=== PATIENT | male | born 1980 | race Hispanic/Latino ===

== ENCOUNTER 2020-09-13 11:46 | Emergency (ER) | payer SELFPAY ==
--- NOTE | 2020-09-13 12:50 | RAD REPORT ---
EXAM DESCRIPTION: CT - Head Brain Wo Cont - 09/13/2020 12:42 pm CLINICAL HISTORY: VISUAL DISTURBANCES Headache, drowsiness, blurry vision COMPARISON: No comparisons TECHNIQUE: All CT scans are performed using dose optimization technique as appropriate and may inclu de automated exposure control or mA/KV adjustment according to patient size. FINDINGS: No intracranial hemorrhage, hydrocephalus or extra-axial fluid collection.No areas of brai n edema or evidence of midline shift. The paranasal sinuses and mastoids are clear. The calvarium is intact. IMPRESSION: No acute intracranial abnormality.
--- NOTE | 2020-09-13 13:16 | ER ---
Nurse's Notes [facility] Name: Yong Hammond Age: 39 yrs Sex: Male : 1980 Arrival Date: 09/13/2020 Time: 11:49 Bed 27 Private MD: Diagnosis: Encounter for examination of eyes and vision with abnormal findings-left eye Presentation: 09/13 12:23 Chief complaint: Patient states: vision in left eye started getting blurry and has some iw darkening of his vision, started about a week, then yesterday he was driving and he couldn't see the reflection on the street signs at night. Coronavirus screen: At this time, the client does not indicate any symptoms associated with coronavirus-19. Ebola Screen: Patient negative for fever greater than or equal to 101.5 degrees Fahrenheit, and additional compatible Ebola Virus Disease symptoms Patient denies exposure to infectious person. Patient denies travel to an Ebola-affected area in the 21 days before illness onset. No symptoms or risks identified at this time. Initial Sepsis Screen: Does the patient meet any 2 criteria? No. Patient's initial sepsis screen is negative. Does the patient have a suspected source of infection? No. Patient's initial sepsis screen is negative. Risk Assessment: Do you want to hurt yourself or someone else?. Onset of symptoms was September 06, 2020. 12:23 Method Of Arrival: Ambulatory iw 12:23 Acuity: MUNA 3 iw Historical: - Allergies: 12:25 No Known Allergies; iw - Home Meds: 12:25 None [Active]; iw - PMHx: 12:25 abdominal hernia; iw - PSHx: 12:25 Cholecystectomy; iw - Immunization history:: Adult Immunizations. - Social history:: Smoking status: Patient reports the use of cigarette tobacco products, smokes one-half pack cigarettes per day. Screenin:00 Abuse screen: Denies threats or abuse. Denies injuries from another. Nutritional jl7 screening: No deficits noted. Tuberculosis screening: No symptoms or risk factors identified. Fall Risk None identified. Assessment: 12:50 General: Appears in no apparent distress. uncomfortable, Behavior is calm, cooperative, jl7 appropriate for age. Pain: Denies pain. Neuro: Level of Consciousness is awake, alert, obeys commands, Oriented to person, place, time, situation, Reports "It's not really blurry, it just looks different.". Cardiovascular: Patient's skin is warm and dry. Respiratory: Airway is patent Respiratory effort is even, unlabored, Respiratory pattern is regular, symmetrical. Derm: Skin is pink, warm \\T\\ dry. Vital Signs: 12:23 BP 120 / 77; Pulse 70; Resp 16; Temp 97.3; Pulse Ox 99% on R/A; Weight 81.65 kg; Height iw 5 ft. 1 in. (154.94 cm); Pain 0/10; 13:01 BP 119 / 63; Pulse 69; Resp 17; Pulse Ox 96% ; jl7 12:23 Body Mass Index 34.01 (81.65 kg, 154.94 cm) iw Visual Acuity: 13:00 Left Eye Visual acuity 20/15, ; Right Eye Visual acuity 20/15, ; Both Eyes Visual jl7 acuity 20/15; Without Lenses; ED Course: 11:49 Patient arrived in ED. rg4 12:25 Triage completed. iw 12:25 Arm band placed on. iw 12:39 Earl Moya PA is PHCP. cp 12:39 Wilmer Otoole MD is Attending Physician. cp 12:40 Bry Newton RN is Primary Nurse. jl7 12:41 CT Head Brain wo Cont In Process Unspecified. EDMS 13:00 Patient has correct armband on for positive identification. Bed in low position. Call jl7 light in reach. Side rails up X 1. Pulse ox on. NIBP on. 13:15 Nicci Reece MD is Referral Physician. cp 13:23 No provider procedures requiring assistance completed. Patient did not have IV access jl7 during this emergency room visit. Administered Medications: No medications were administered Point of Care Testing: Blood Glucose: 12:51 Blood Glucose: 107 mg/dL; jl7 Ranges: Outcome: 13:15 Discharge ordered by . cp 13:23 Discharged to home ambulatory. jl7 13:23 Condition: stable 13:23 Discharge instructions given to patient, Instructed on discharge instructions, follow up and referral plans. Demonstrated understanding of instructions. 13:24 Patient left the ED. jl7 Signatures: Dispatcher [employer] EDMO Ghislaine Seymour RN RN Earl Moya PA PA Yaneli Bar rg4 Bry Newton RN RN jl7
--- NOTE | 2020-09-13 13:17 | EDPHYS ---
Physician Documentation [facility] Name: Yong Hammond Age: 39 yrs Sex: Male : 1980 Arrival Date: 09/13/2020 Time: 11:49 Bed 27 Private MD: ED Physician Wilmer Otoole HPI: 09/13 13:00 This 39 yrs old Male presents to ER via Ambulatory with complaints of Blurred cp Vision. 13:00 The patient is experiencing left eye vision changes. cp 13:00 Onset: The symptoms/episode began/occurred 1 week(s) ago. cp 13:00 Duration: the symptoms are continuous. cp 13:00 Patient does not utilize any form of vision correction. cp 13:00 Patient c/o left eye vision changes times 1 weeks. Concerned that coloration appears cp "darkened, grainy" when looking with left eye. Denies floaters. Historical: - Allergies: 12:25 No Known Allergies; iw - Home Meds: 12:25 None [Active]; iw - PMHx: 12:25 abdominal hernia; iw - PSHx: 12:25 Cholecystectomy; iw - Immunization history:: Adult Immunizations. - Social history:: Smoking status: Patient reports the use of cigarette tobacco products, smokes one-half pack cigarettes per day. ROS: 13:05 Eyes: Positive for visual disturbance, of the left eye, Negative for blurry vision, cp discharge, pain, redness, vision loss. 13:05 ENT: Negative for injury, pain, and discharge. cp 13:05 Constitutional: Negative for body aches, chills, fever. 13:05 Cardiovascular: Negative for chest pain. 13:05 Respiratory: Negative for cough, shortness of breath, wheezing. 13:05 Skin: Negative for rash. 13:05 Neuro: Negative for altered mental status, dizziness, headache, weakness. 13:05 All other systems are negative. Exam: 13:07 Visual Acuity: I have reviewed the nursing documentation. cp 13:07 Head/Face: Normocephalic, atraumatic. cp 13:07 Constitutional: The patient appears in no acute distress, alert, awake, non-toxic, well developed, well nourished. 13:07 Eyes: Periorbital structures: appear normal, Pupils: equal, round, and reactive to cp light and accomodation, Extraocular movements: intact throughout, Conjunctiva: normal, no exudate, no injection, Corneas: are normal, no foreign body, Sclera: no appreciated abnormality, Anterior chamber: normal, no hyphema, Lids and lashes: appear normal, bilaterally. 13:07 ENT: External ear(s): are unremarkable, Nose: is normal, Posterior pharynx: Airway: no evidence of obstruction, patent. 13:07 Neck: Lymph nodes: no appreciated lymphadenopathy. 13:07 Chest/axilla: Inspection: normal. 13:07 Cardiovascular: Rate: normal. 13:07 Skin: no rash present. Vital Signs: 12:23 BP 120 / 77; Pulse 70; Resp 16; Temp 97.3; Pulse Ox 99% on R/A; Weight 81.65 kg; Height iw 5 ft. 1 in. (154.94 cm); Pain 0/10; 13:01 BP 119 / 63; Pulse 69; Resp 17; Pulse Ox 96% ; jl7 12:23 Body Mass Index 34.01 (81.65 kg, 154.94 cm) iw Visual Acuity: 13:00 Left Eye Visual acuity 20/15, ; Right Eye Visual acuity 20/15, ; Both Eyes Visual jl7 acuity 20/15; Without Lenses; MDM: 12:43 Patient medically screened. 13:15 Physician consultation: Nicci Reece MD was called at 13:10, was contacted at 13:10, regarding consult, patient's condition, and will see patient in office, later today. 13:15 Data reviewed: vital signs, nurses notes, and as a result, I will discharge patient. 13:15 Counseling: I had a detailed discussion with the patient and/or guardian regarding: the cp historical points, exam findings, and any diagnostic results supporting the discharge/admit diagnosis, the need for outpatient follow up, an opthalmologist, to return to the emergency department if symptoms worsen or persist or if there are any questions or concerns that arise at home. 09/13 13:02 Order name: Glucose, Ancillary Testing; Complete Time: 13:07 EDMS 09/13 12:26 Order name: CT Head Brain wo Cont; Complete Time: 12:53 iw 09/13 12:54 Interpretation: Report reviewed. 09/13 12:41 Order name: Visual Acuity; Complete Time: 12:57 cp 12/10 12:41 Order name: Accdareck Blood Glucose; Complete Time: 12:50 cp Administered Medications: No medications were administered Point of Care Testing: Blood Glucose: 12:51 Blood Glucose: 107 mg/dL; jl7 Ranges: Critical Glucose Levels:Adult <50 mg/dl or >400 mg/dl <40 mg/dl or >180 mg/dl Disposition: 14:39 Co-signature as Attending Physician, Wilmer Otoole MD I agree with the assessment and kdr plan of care. Disposition: 09/13/20 13:15 Discharged to Home. Impression: Encounter for examination of eyes and vision with abnormal findings - left eye. - Condition is Stable. - Medication Reconciliation Form, Thank You Letter, Antibiotic Education, Prescription Opioid Use form. - Follow up: Nicci Reece MD; When: Upon discharge from the Emergency Department; Reason: Recheck today's complaints. - Problem is new. - Symptoms are unchanged. Signatures: Dispatcher [employer] EDMS Wilmer Otoole MD MD [facility] Ghislaine Seymour RN RN iw Earl Moya PA PA cp Bry Newton RN RN jl7 Corrections: (The following items were deleted from the chart) 13:24 13:15 09/13/2020 13:15 Discharged to Home. Impression: Encounter for examination of jl7 eyes and vision with abnormal findings - left eye. Condition is Stable. Forms are Medication Reconciliation Form, Thank You Letter, Antibiotic Education, Prescription Opioid Use. Follow up: Nicci Reece; When: Upon discharge from the Emergency Department; Reason: Recheck today's complaints. Problem is new. Symptoms are unchanged. cp
[2020-09-18 16:55] VITALS: TEMP 97.3
[2020-09-18 16:56] VITALS: BP 119/63; O2SAT 96
== END 2020-09-13 13:24 | disposition home or self-care (01) ==
LOC: ER 11:46
DX: H53.8 Other visual disturbances (principal); F17.210 Nicotine dependence, cigarettes, uncomplicated
CPT/HCPCS: 70450; 82947; 99283